=== PATIENT | female | born 1970 | race African-American/Black ===

== ENCOUNTER 2017-04-10 19:18 | Emergency (ER) | payer OTHER ==
[~2017-04-10 19:18] MED LIST: ALBUTEROL17 GM INH; ALPRAZOLAM; AMBIEN; ASPIRIN EC81 M1 PO; ASPIRIN81 M2 PO; ASPIRIN81 MG PO; BACTRIM DS TABL1 TA1 PO; BENADRYL PO; CARVEDILOL12.5 MG PO; CELEXA; COREG6.25 MG PO; FLAGYL PO; FLEXERIL; K-DUR10 MEQ PO; KLONOPIN; LASIX PO; LORTAB 10/500 T1 TAB; MEDROL DOSEPAK4 MG PO; METOPROLOL TAR25 MG PO; OMEPRAZOLE40 M1 PO; PEPCID AC20 MG PO; PRILOSEC PO; PRILOSEC40 MG PO; REMERON; REMERON15 MG PO; SENNA LAXATIVE8.6 M1 PO; TAZTIA XT120 M1 PO; TAZTIA XT120 MG PO; TYLENOL #3 PO; VICODIN 5/1 TAB 5/50 PO; VICODIN PO; XANAX1 MG PO; ZESTRIL10 M2 PO
== END 2017-04-10 22:00 | disposition home or self-care (01) ==
LOC: CFTX 19:18 → CED 19:18 → CFTX 20:15
DX: H61.21 Impacted cerumen, right ear (principal); I11.9 Hypertensive heart disease without heart failure; J45.909 Unspecified asthma, uncomplicated; F17.290 Nicotine dependence, other tobacco product, uncomplicated; Z98.890 Other specified postprocedural states; Z88.8 Allergy status to other drugs, medicaments and biological substances
CPT/HCPCS: 99282